=== PATIENT | female | born 1975 | race Caucasian/White ===

== ENCOUNTER → 2018-01-08 | Outpatient (CLI) | payer OTHER | END | disposition home or self-care (01) | LOC: RES 07:49 | DX: R07.89 Other chest pain (principal); J20.9 Acute bronchitis, unspecified; R06.00 Dyspnea, unspecified | CPT/HCPCS: 94060; 94726; 94729 ==

== ENCOUNTER → 2018-02-26 | Outpatient (CLI) | payer OTHER | END | disposition home or self-care (01) | LOC: RES 02-08 10:00 | DX: R05 Cough (principal) | CPT/HCPCS: 94070 ==